=== PATIENT | female | born 1990 | race Caucasian/White ===

== ENCOUNTER 2016-11-26 15:33 | Inpatient (IN) | payer MEDICAID ==
[~2016-11-26] VITALS: Ht 162.6 cm; Wt 54.4 kg
[~2016-11-26 15:33] MED LIST: ALBU6.7H INH; PRED-503 PO; ZITH250T PO
[2016-11-28] VITALS (18 sets, daily range): BP systolic 100–115; BP diastolic 57–72; PULSE 69–94; RESP 6–18; TEMP 97.6–98.2; O2SAT 99–100
[2016-11-28] MEDS ORDERED: LACTATED RINGER'S 1000 ML IV ONE (06:15)
[2016-11-28] MEDS ORDERED: ceFAZolin 2 GM PREMIX 50 ML IV SCH (06:15)
[2016-11-28] MEDS ORDERED: CITRIC ACID-SODIUM CITRATE LIQ 30 ML UDC PO SCH (06:15)
[2016-11-28] MEDS ORDERED: SUBUTEX PO (06:17)
[2016-11-28] MEDS ORDERED: CALNTAB PO (06:18)
[2016-11-28] MEDS ORDERED: MIRA3350 PO (06:19)
[2016-11-28 06:48] LABS: AUTOMATED NEUTROPHIL # 5.8 TH/MM3 (1.8-7.7); BASOPHIL % 0.5 % (0.0-2.0); EOSINOPHIL # 0.3 TH/MM3 (0-0.4); EOSINOPHIL % 3.7 % (0.0-4.0); HEMO FLAGS DIFF FINAL; LYMPH % 22.2 % (9.0-44.0); LYMPHOCYTE # 1.9 TH/MM3 (1.0-4.8); MEAN CELL VOLUME 87.8 FL (80.0-100.0); MEAN CORPUSCULAR HGB CONC 34.1 % (32.0-36.0); MONO % 7.3 % (0.0-8.0); NEUT % 66.3 % (16.0-70.0); PLATELET COUNT 220 TH/MM3 (150-450); RED CELL DISTRIBUTION WIDTH 13.5 % (11.6-17.2); WHITE BLOOD COUNT 8.8 TH/MM3 (4.0-11.0)
[2016-11-28 06:52] LABS: BLOOD, URINE NEG (NEG); GLUCOSE,URINE NEG (NEG); KETONE, URINE 40 mg/dL (NEG); MUCUS URINE FEW /lpf (OCC); NITRITE,URINE NEG (NEG); SQUAMOUS EPITHELIAL CELL URINE 2 /hpf (0-5); TRANSITIONAL EPI CELLS, URINE <1 /hpf; URINE COLOR YELLOW (YELLW/STRAW)
[2016-11-28 06:54] LABS: COMMENT (UR) CULTURE INDICATED; CULTURE IF INDICATED CULTURE INDICATED
[2016-11-28] MEDS ORDERED: OXYTOCIN 10 UNIT/ML AMP ONE (07:05)
[2016-11-28] MEDS: LACTATED RINGER'S 1000 ML IV SCH (07:18)
[2016-11-28] MEDS ORDERED: EPIDURAL-NALOXONE HCL 0.4 MG/ML AMP IV PRN (07:25)
[2016-11-28] MEDS ORDERED: EPIDURAL-NO SYSTEMIC NARCOTICS XX PRN (07:25)
[2016-11-28] MEDS ORDERED: EPIDURAL-DO NOT ADMINISTER ANTICOAGULANTS XX PRN (07:25)
[2016-11-28] MEDS ORDERED: EPIDURAL-DIPHENHYDRAMINE HCL 50 MG/ML VIAL IV PUSH PRN (07:25)
[2016-11-28] MEDS ORDERED: EPIDURAL-DIPHENHYDRAMINE HCL 50 MG CAP PO PRN (07:25)
--- NOTE | 2016-11-28 07:43 | MH ---
cc: VERONIKA SANCHEZ DATE OF ADMISSION: 11/28/2016 SCHEDULED PROCEDURE Repeat low transverse segment section. REASON FOR ADMISSION Prior section and desire for repeat. HISTORY OF PRESENT CONDITION The patient is a 29-year-old single white female, 2, para 1-0-0-1 at 39 weeks and change, who presents this morning for repeat low transverse segment section. She is a late entry into our practice having presented to our office without an appointment in September unable to find any care in our community. 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 At that point she was 32 weeks and other than constipation and a previous sections and no other issues. She was started on Subutex 8 mg b.i.d. by me, signed contracts, and agreed to go through our program, and other than Zantac, MiraLax and some Ensure she was on no other medications and has had an unremarkable remainder of her . She is very tiny. Her weight gain has been a total of 5 pounds since October 15 and she currently weighs 120 pounds. Her baby, however, is in the 37th percentile. The AC abdominal circumference is less than 10th percentile, so there is a little bit of type 2 growth restriction. She is hepatitis C negative. She is O+. Her hemoglobin is 13.4. Her Pap smear is normal. She is immune to [place] measles and chickenpox. Her cultures were all negative. Her Glucola was 115. Her group-B strep was negative. We do have records from her previous care in [place] and everything was unremarkable there also. FAMILY HISTORY Noncontributory. SOCIAL HISTORY Currently she is not smoking, drinking or using illicit drugs. The father of the baby is somewhat estranged but is present today for her . PHYSICAL EXAMINATION GENERAL: She is a slim female in no acute distress. VITAL SIGNS: Afebrile with stable vital signs. NECK: She has no thyroid enlargement. LUNGS: Her lungs are clear. HEART: Regular. OB: Fundus measures 35. Estimated weight about 6 pounds. The is in vertex position with a posterior placenta. Cervix is 2 cm. EXTREMITIES: Extremities are healthy with no edema and no recent track trevino. She has good dentition, good skin. IMPRESSION A healthy term with a young woman mom who is on a fairly average dose of Subutex scheduled for repeat . She understands the implications of abstinence syndrome. She understands that she may have a different perception of pain postoperatively. We will try to get her a post-op TAP for post-op analgesia with Anesthesia. The risks and benefits of repeat versus trial of labor have been discussed in detail. She has signed consents and is scheduled for this morning. Veronika Sanchez MD PPC/BT /7:09 AM /7:32 AM
--- NOTE | 2016-11-28 08:21 | PD.OB.DELI ---
Procedure Note Section Procedure Pre Op Diagnosis term, desired repeat subutex maintenance Post Op Diagnosis: Post Op Diagnosis same, delivered Performed by Brenna Pichardo Procedure: Repeat Low Transverse Sec, Other (TAP) Indication for delivery: Desired elective repeat Informed consent obtained: For anesthesia, For procedure Confirmed correct: Patient, Procedure, Site, Time-out taken Anesthesia: Spinal, Other (TAP) Medication prior to procedure: As documented in eMAR Monitoring during procedure: Blood pressure monitoring Urinary catheter: Inserted using sterile technique, To dependent drainage Sterile preparation: Duraprep, In usual fashion Position: Supine with wedge to right side Operative Features Skin Incision: Pfannenstiel Uterine Incision: Low transverse w/knife / blunt ext Membranes Ruptured: Artificially Presentation: Occiput anterior Delivery of infant: Assisted Infant: Female One Minute : 8 Five Minute : 9 Weight: 6 1 Status of infant: Viable, Umbilical cord, Nursery present Placenta delivered: Intact Medications: Antibiotics, Oxytocin Estimated blood loss: 500 Procedure tolerated: Well Maternal Condition: Stable Condition: Stable Brenna Pichardo MD Nov 28, 2016 08:21
[2016-11-28] MEDS ORDERED: OXYTOCIN 30 UNITS-500ML PREMIX 500 ML IV ONE (08:30)
[2016-11-28] MEDS ORDERED: KETOROLAC TROMETHAMINE 60 MG/2 ML (IM) VIAL IM PRN (08:30)
[2016-11-28] MEDS ORDERED: SODIUM CHLORIDE 0.9% FLUSH 5 ML FLUSH IV PRN (08:30)
[2016-11-28] MEDS ORDERED: ONDANSETRON HCL 4 MG/2 ML VIAL IV PUSH PRN (08:30)
[2016-11-28] MEDS ORDERED: SIMETHICONE 80 MG CHEWABLE TAB PO PRN (08:30)
[2016-11-28] MEDS ORDERED: MORPHINE SULFATE PF 5 MG/10 ML VIAL ONE (08:33)
[2016-11-28] MEDS ORDERED: ACETAMINOPHEN 1000 MG/100 ML VIAL IV ONE (09:00)
[2016-11-28] MEDS ORDERED: SODIUM CHLORIDE 0.9% FLUSH 5 ML FLUSH IV SCH (09:00)
[2016-11-28] MEDS ORDERED: OXYTOCIN 30 UNITS-500ML PREMIX 500 ML ONE (09:01)
[2016-11-28] MEDS ORDERED: LACTATED RINGER'S 1000 ML INJ 1,000 ML IV SCH (13:21)
[2016-11-28 13:24] LABS: AMPHETAMINE, URINE NEG (NEG); BARBITURATES, URINE NEG (NEG); COCAINE, URINE NEG (NEG)
[2016-11-28] MEDS ORDERED: OXYTOCIN 30 UNITS-500ML PREMIX 500 ML IV PRN (18:30)
--- NOTE | 2016-11-28 22:11 | MP ---
cc: BRENNA SANCHEZ DATE OF SURGERY: 11/28/2016 PREOPERATIVE DIAGNOSIS: Term intrauterine , desired repeat section, Subutex maintenance. POSTOPERATIVE DIAGNOSIS: Term intrauterine , desired repeat section, Subutex maintenance. PROCEDURE: Repeat low transverse segment section. ANESTHESIA: Spinal with Duramorph and a subsequent TAP. FINDINGS: A living female was delivered from CONNIE position with clear fluid and no nuchal cord. Her Apgars were 8 at 1 and 9 at 5, weight 6 pounds 11 ounces. Placenta was posterior intact with a three-vessel cord. BLOOD LOSS: Minimal for . Uterus, tubes and ovaries were unremarkable. DETAILS OF PROCEDURE: The patient was identified as Alis Nichols. Her permit was reviewed with her at time out. She had been administered a spinal with Duramorph and was on the left side. She had sequential on, a Lin in place and had received antibiotics 1 gram IV preop. After assuring adequate analgesia and appropriate time out a Pfannenstiel incision was made through her previous one and taken through the scarred rectus fascia with the Bovie. The rectus fascia was taken off the rectus muscle. The rectus muscle was in the midline. The parietal peritoneum was entered. A bladder flap was created and a low transverse incision was made, extended vertically in a blunt fashion. The infant was delivered with the findings as noted above. The cord was clamped x2, cut, after a 45-second delay and then she was handed off to the neonatology team in attending. The placenta was delivered manually intact, the uterus was exteriorized, cleaned was lap sponge and closed with chromic in a running interlocking fashion with a second horizontal imbricating layer. Then it was replaced in the abdominal cavity and irrigation was performed. The rectus muscles approximated, the fascia was then closed with one Vicryl. The subcutaneous layer was closed with 3-0 plain and the skin was closed with 4-0 Vicryl on a Aguila needle. Estimated blood loss was average. Sponge, instrument, needle count correct. She tolerated the procedure well and she went to the recovery room in stable condition. Brenna Sanchez MD PPC/MEGHANA /8:27 AM /10:01 PM
[2016-11-28] MEDS: IBUPROFEN 600 MG TAB PO PRN (22:23)
[2016-11-28] MEDS: DOCUSATE SODIUM 50 MG/SENNA 8.6 MG TAB PO PRN (23:54)
[2016-11-29] VITALS: BP 102/59; PULSE 87; RESP 18; TEMP 98.2
[2016-11-29] MEDS: IBUPROFEN 600 MG TAB PO PRN ×2 (03:57→11:03)
[2016-11-29 04:00] VITALS: BP 101/59; PULSE 75; RESP 18; TEMP 98.7
[2016-11-29 06:04] LABS: AUTOMATED NEUTROPHIL # 6.9 TH/MM3 (1.8-7.7); BASOPHIL % 0.4 % (0.0-2.0); EOSINOPHIL # 0.1 TH/MM3 (0-0.4); EOSINOPHIL % 1.4 % (0.0-4.0); HEMATOCRIT 30.9 % (35.0-46.0); HEMO FLAGS DIFF FINAL; LYMPH % 19.5 % (9.0-44.0); LYMPHOCYTE # 1.9 TH/MM3 (1.0-4.8); MEAN CELL VOLUME 88.6 FL (80.0-100.0); MEAN CORPUSCULAR HEMOGLOBIN 30.3 PG (27.0-34.0); MEAN CORPUSCULAR HGB CONC 34.2 % (32.0-36.0); MONO % 7.3 % (0.0-8.0); NEUT % 71.4 % (16.0-70.0); PLATELET COUNT 169 TH/MM3 (150-450); RED BLOOD COUNT 3.49 MIL/MM3 (4.00-5.30); RED CELL DISTRIBUTION WIDTH 13.6 % (11.6-17.2); WHITE BLOOD COUNT 9.7 TH/MM3 (4.0-11.0)
--- NOTE | 2016-11-29 08:32 | HHI.OB ---
Subjective Post Operative Day: 1 Remarks no complaints, encouraged Objective Vitals/I&O Vital Signs Date Time Temp Pulse Resp B/P Pulse Ox O2 Delivery O2 Flow Rate FiO2 11/29/16 04:00 101/59 11/29/16 04:00 98.7 75 18 11/29/16 00:00 98.2 87 18 102/59 11/28/16 20:00 18 11/28/16 20:00 98.0 83 100/63 11/28/16 18:00 17 11/28/16 16:57 18 11/28/16 15:00 16 11/28/16 14:30 98.2 77 16 115/68 11/28/16 14:00 16 11/28/16 13:40 16 11/28/16 13:00 16 11/28/16 12:00 6 11/28/16 12:00 16 11/28/16 10:30 97.6 11/28/16 10:30 80 18 105/69 11/28/16 09:41 75 16 105/70 99 11/28/16 09:41 97.6 11/28/16 09:30 69 18 103/71 100 11/28/16 09:15 79 16 111/70 99 11/28/16 09:00 110/72 11/28/16 09:00 87 16 99 11/28/16 08:45 16 99 11/28/16 08:45 91 108/66 Result Diagram: 11/29/16 0447 Objective Remarks GENERAL: Well-nourished, well-developed patient. CARDIOVASCULAR: Regular rate and rhythm without murmurs, gallops, or rubs. RESPIRATORY: Breath sounds equal bilaterally. No accessory muscle use. ABDOMEN/GI: Abdomen soft, non-tender, bowel sounds present. Incision: dressing Clean, dry and intact. Fundus: Firm, non-tender at umbilicus. GENITOURINARY: Light to moderate bleeding. EXTREMITIES: No cyanosis or edema, non-tender, without signs of DVT. Medications and IVs Current Medications Medications (Trade) Dose Ordered Sig/Demi Route Start Time Stop Time Status Last Admin Lactated Ringer's 1,000 ml @ 150 mls/hr Q6H40M IV 11/28/16 06:15 11/28/16 07:18 (Lr 1000 ml Inj) 1,000 ml @ 100 mls/hr Q10H IV 11/28/16 13:21 11/29/16 09:20 11/28/16 15:00 (NS Flush) 2 ml BID IV 11/28/16 09:00 (NS Flush) 2 ml UNSCH PRN IV 11/28/16 08:30 (Mylicon Chew) 80 mg QID PRN PO 11/28/16 08:30 (Motrin) 600 mg Q6H PRN PO 11/28/16 08:30 11/29/16 03:57 (Viri-Colace) 2 tab Q12H PRN PO 11/28/16 08:30 11/28/16 23:54 (M-M-R Ii Inj) 0.5 ml ONCE ONCE SQ 11/29/16 16:00 11/29/16 16:01 (Boostrix Inj) 0.5 ml ONCE ONCE IM 11/29/16 16:00 11/29/16 16:01 (Zofran Inj) 4 mg Q6H PRN IV PUSH 11/28/16 08:30 Assessment/Plan Problem List: (1) S/P repeat low transverse Assessment and Plan s/p Repeat [facility], Dr Pichardo pt on Sobutex 8 mg BID, POD #1 discharge planning POD #3 Discharge Planning routine Attending Attestation pt seen by Sharon Wilson MD Nov 29, 2016 08:32
[2016-11-29 09:15] VITALS: BP 105/72; PULSE 96; RESP 16; TEMP 98.7
[2016-11-29] MEDS: DOCUSATE SODIUM 50 MG/SENNA 8.6 MG TAB PO PRN ×2 (11:03→19:21)
[2016-11-29] MEDS ORDERED: NALOXONE HCL 0.4 MG/ML AMP IV PRN (11:15)
[2016-11-29] MEDS: KETOROLAC TROMETHAMINE 30 MG/ML (IVP) VIAL IV PUSH PRN (11:18)
[2016-11-29] MEDS: MORPHINE SULFATE 30 MG/30 ML PCA IV SCH ×2 (13:52→19:06)
[2016-11-29] MEDS ORDERED: PCA - TOTAL MG MORPHINE DELIVERED PER SHIFT SCH (14:00)
[2016-11-29] MEDS ORDERED: MEASLES, MUMPS, RUBELLA VACCINE 0.5 ML VIAL SQ ONE (16:00)
[2016-11-29] MEDS ORDERED: DIPHTH/TETANUS/ACEL PERTUSSIS (BOOSTER) 0.5 ML VIAL/PFS IM ONE (16:00)
[2016-11-29 20:00] VITALS: BP 99/59; PULSE 80; RESP 18; TEMP 97.6
[2016-11-30] VITALS: BP 114/73; PULSE 89; RESP 18; TEMP 98.4
[2016-11-30] MEDS: KETOROLAC TROMETHAMINE 30 MG/ML (IVP) VIAL IV PUSH PRN ×2 (00:07→10:44)
[2016-11-30] MEDS: MORPHINE SULFATE 30 MG/30 ML PCA IV SCH (00:43)
[2016-11-30 02:00] VITALS: RESP 16
[2016-11-30 04:00] VITALS: BP 102/68; PULSE 76; RESP 18; TEMP 98.4
[2016-11-30 07:48] VITALS: BP 106/70; PULSE 87; RESP 16; TEMP 99
--- NOTE | 2016-11-30 08:13 | HHI.OB ---
Subjective Post Operative Day: 2 Remarks Doing well Pain is well controlled bleeding is good Baby is good Objective Vitals/I&O Vital Signs Date Time Temp Pulse Resp B/P Pulse Ox O2 Delivery O2 Flow Rate FiO2 11/30/16 05:57 16 11/30/16 04:00 98.4 76 18 102/68 11/30/16 02:00 16 11/30/16 00:43 18 11/30/16 00:00 98.4 89 18 114/73 11/29/16 20:00 97.6 80 18 99/59 11/29/16 19:06 18 11/29/16 14:30 16 11/29/16 13:52 16 11/29/16 09:15 98.7 11/29/16 09:15 96 16 105/72 Result Diagram: 11/29/16 0447 Objective Remarks GENERAL: Well-nourished, well-developed patient. CARDIOVASCULAR: Regular rate and rhythm without murmurs, gallops, or rubs. RESPIRATORY: Breath sounds equal bilaterally. No accessory muscle use. ABDOMEN/GI: Abdomen soft, non-tender, bowel sounds present. Incision: dressing Clean, dry and intact. Fundus: Firm, non-tender at umbilicus. GENITOURINARY: Light to moderate bleeding. EXTREMITIES: No cyanosis or edema, non-tender, without signs of DVT. Medications and IVs Current Medications Medications (Trade) Dose Ordered Sig/Demi Route Start Time Stop Time Status Last Admin (Lr 1000 ml Inj) 1,000 ml @ 150 mls/hr Q6H40M IV 11/28/16 06:15 11/28/16 07:18 (NS Flush) 2 ml BID IV 11/28/16 09:00 (NS Flush) 2 ml UNSCH PRN IV 11/28/16 08:30 (Mylicon Chew) 80 mg QID PRN PO 11/28/16 08:30 (Motrin) 600 mg Q6H PRN PO 11/28/16 08:30 11/29/16 11:03 (Viri-Colace) 2 tab Q12H PRN PO 11/28/16 08:30 11/29/16 19:21 (Zofran Inj) 4 mg Q6H PRN IV PUSH 11/28/16 08:30 (Toradol Inj) 30 mg Q6H PRN IV PUSH 11/29/16 11:15 12/01/16 11:14 11/30/16 00:07 (Narcan Inj) 0.4 mg UNSCH PRN IV 11/29/16 11:15 MULT AU MATIC OPERATOR Dosage Infused (Pha) 1 Q8HR .XX 11/29/16 14:00 11/30/16 05:57 Assessment/Plan Problem List: (1) S/P repeat low transverse Assessment and Plan POD#2 Doing well, D/C MULT AU MATIC OPERATOR today and start subutex Will add percocet now for a short while Start Fe after the percocet. Discharge Planning routine Antoine Gonzalez MD Nov 30, 2016 08:13
[2016-11-30] MEDS ORDERED: oxyCODONE/ACETAMINOPHEN 5 MG/325 MG TAB PO PRN (09:00)
[2016-11-30] MEDS: LACTATED RINGER'S 1000 ML IV SCH (11:35)
[2016-11-30] MEDS: DOCUSATE SODIUM 50 MG/SENNA 8.6 MG TAB PO PRN (13:54)
[2016-11-30] MEDS: oxyCODONE/ACETAMINOPHEN 5 MG/325 MG TAB PO PRN ×3 (13:55→23:58)
[2016-11-30] MEDS: IBUPROFEN 600 MG TAB PO PRN ×2 (18:20→23:58)
[2016-11-30] MEDS ORDERED: diphenhydrAMINE HCL 25 MG CAP PO PRN (22:45)
[2016-11-30] MEDS ORDERED: ZOLPIDEM TARTRATE 5 MG TAB PO PRN (22:45)
[2016-12-01] MEDS: IBUPROFEN 600 MG TAB PO PRN (07:23)
[2016-12-01] MEDS: oxyCODONE/ACETAMINOPHEN 5 MG/325 MG TAB PO PRN (07:23)
[2016-12-01 07:30] VITALS: BP 112/69; PULSE 83; RESP 18; TEMP 98
[2016-12-01] MEDS ORDERED: IBUP-232 PO (13:20)
[2016-12-01] MEDS ORDERED: AMBI5TAB PO (13:20)
[2016-12-01] MEDS ORDERED: OXYC1TAB63 PO (13:20)
[2016-12-03 09:41] LABS: OBMETHADONE UR NEG (NEG); PHENCYCLIDINE URINE NEG (NEG)
[2016-12-03 09:42] LABS: BATH SALTS (MDPV) UR NEG (NEG); ECSTASY (MDMA) UR NEG (NEG); HEROIN (6-ACETYLMORPHINE) UR NEG (NEG); K2 SPICE UR NEG (NEG); OXYCODONE (PERCODAN) NEG (NEG)
== END 2016-12-01 13:59 | disposition home or self-care (01) | DRG 765 ==
LOC: H2EB 11-28 05:55 → H1EA 11-28 10:30
PROVIDERS: ADMIT Obstetrics & Gynecology; ATTEND Obstetrics & Gynecology
PROC: 10D00Z1 Extraction of Products of Conception, Low, Open Approach (ICD-10-PCS; principal; 2016-11-28)
DX: O34.211 Maternal care for low transverse scar from previous cesarean delivery (principal); O99.324 Drug use complicating childbirth; F11.20 Opioid dependence, uncomplicated; Z3A.39 39 weeks gestation of pregnancy; Z37.0 Single live birth; O75.5 Delayed delivery after artificial rupture of membranes
CPT/HCPCS: 59025; 80307; 81001; 85025; 86850; 86900; 86901; 87086; 90715; G0481; J0131; J0690; J1885; J2270; J2274; J2590; J7120; Q0163

== ENCOUNTER 2017-06-07 09:17 | Emergency (ER) | payer MEDICAID ==
[~2017-06-07] VITALS: Ht 165.1 cm; Wt 49.1 kg
[~2017-06-07 09:17] MED LIST changes: -ALBU6.7H INH; +AMBI5TAB PO; +CALNTAB PO; +IBUP-232 PO; +MIRA3350 PO; +OXYC1TAB63 PO; -PRED-503 PO; +SUBUTEX PO; -ZITH250T PO
[2017-06-07 09:19] VITALS: BP 114/69; PULSE 97; RESP 17; TEMP 99; O2SAT 95
[2017-06-07] MEDS ORDERED: PRAZ2CAP PO (09:24)
[2017-06-07] MEDS ORDERED: SUBO8MIS SL (09:24)
[2017-06-07] MEDS ORDERED: CLON1 PO (09:24)
[2017-06-07] MEDS ORDERED: DEPO150I IM (09:24)
--- NOTE | 2017-06-07 09:34 | PD ---
HPI . 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 Patient says that she thought it was possibly getting better, however her symptoms continue to worsen. She now has eye pain, photophobia and redness to her left eye. She denies any foreign body sensation. She has continued to wear her contact lenses over the past few days, except for today. PFSH Past Medical History Cardiovascular Problems: Yes (TACHYCARDIA) ?: Not LMP: DECEMBER 2016 Past Surgical History Section: Yes Oral Surgery: Yes (JAW ) Social History Alcohol Use: No Tobacco Use: Yes (stop smoking cigarettes but uses E cigarette during ) Substance Use: No Allergies-Medications (Allergen,Severity, Reaction): Coded Allergies: No Known Allergies (Unverified , 06/07/17) Reported Meds & Prescriptions Reported Meds & Active Scripts Active Reported Depo-Provera Inj (Medroxyprogesterone Inj) 150 Mg/Ml Inj 150 Mg IM ONCE Klonopin (Clonazepam) 1 Mg Tab 1 Mg PO QID PRN Suboxone Sublingual Film (Buprenorphine-Naloxone Sublingual Film) 8-2 Mg Film 1 Film SL Unique ID number required: Prazosin (Prazosin HCl) 2 Mg Cap 2 Mg PO TID Review of Systems General / Constitutional: No: Fever Eyes: Positive: Photophobia, Redness, Pain, Tearing, No: Visual changes HENT: No: Headaches Cardiovascular: No: Chest Pain or Discomfort Respiratory: No: Shortness of Breath Gastrointestinal: No: Abdominal Pain Genitourinary: No: Dysuria Musculoskeletal: No: Pain Skin: No Rash Neurologic: No: Weakness Psychiatric: No: Depression Endocrine: No: Polydipsia Hematologic/Lymphatic: No: Easy Bruising Physical Exam Narrative GENERAL: AAO x 3, no acute distress, Well-nourished, well-developed patient. SKIN: Warm and dry. No visible rashes or bruising. HEAD: Normocephalic and atraumatic. EYES: No scleral icterus. No injection EOM intact, PERRLA + clear drainage from left eye, redness, photophobia, ++ tearing. ENT: No nasal drainage noted. Mucous membranes pink. Airway patent. NECK: Supple, trachea midline. No JVD. CARDIOVASCULAR: Regular rate and rhythm without murmurs, gallops, or rubs. RESPIRATORY: Breath sounds equal bilaterally. No accessory muscle use. No rhonchi or rales. GASTROINTESTINAL: visual inspection normal EXTREMITIES: No cyanosis or edema. BACK: No obvious deformity. NEURO: CN II-12 intact PSYCH: AAO x 3, normal affect. Data Data Last Documented VS Vital Signs Date Time Temp Pulse Resp B/P (MAP) Pulse Ox O2 Delivery O2 Flow Rate FiO2 06/07/17 09:51 06/07/17 09:19 99.0 97 17 95 Room Air Orders Orders Proparacaine 0.5% Opth Soln (Alcaine 0.5 (06/07/17 09:45) MDM Medical Decision Making Medical Screen Exam Complete: Yes Emergency Medical Condition: Yes Medical Record Reviewed: Yes Differential Diagnosis corneal ulcer, corneal abrasion, acute angle glaucoma Narrative Course 26 yr old female here with worsening eye pain, redness and clear drainage. I have performed bedside staining and her eye is very sensitive. I do not appreciate an abrasion, but there may be a small ulcer on the left lateral eye. I recommend ophthalmology appointment. I have contacted Dr. Keene's office and they will see her this morning at 1030. Procedures Procedure Narrative Fluorescein eye staining procedure: left eye proparacaine drops instilled into the left eye Local anesthesia was accomplished. the eye was inspected for any type of obvious foreign body fluorescein stain was applied to look for corneal abrasion Diagnosis Primary Impression: Eye pain Qualified Codes: H57.12 - Ocular pain, left eye Referrals: Elena Keene MD Additional Instructions: Dr. Keene will see you this morning at 1030; please go directly to her office. Disposition: 01 DISCHARGE HOME Condition: Stable Sandy Medina Jun 07, 2017 09:33
[2017-06-07] MEDS ORDERED: PROPARACAINE HCL 0.5% OPHT SOLN 15 ML BTL EACH EYE ONE (09:45)
== END 2017-06-07 09:52 | disposition home or self-care (01) ==
LOC: NEPK 09:17
DX: H57.12 Ocular pain, left eye (principal)
CPT/HCPCS: 99283

== ENCOUNTER 2017-07-15 14:12 | Emergency (ER) | payer MEDICAID ==
[~2017-07-15] VITALS: Ht 167.6 cm; Wt 48.0 kg
[~2017-07-15 14:12] MED LIST changes: -AMBI5TAB PO; -CALNTAB PO; +CLON1 PO; +DEPO150I IM; -IBUP-232 PO; -MIRA3350 PO; -OXYC1TAB63 PO; +PRAZ2CAP PO; +SUBO8MIS SL; -SUBUTEX PO
[2017-07-15 14:13] VITALS: BP 128/84; PULSE 133; RESP 20; TEMP 100.6; O2SAT 95
[2017-07-15 15:10] VITALS: BP 115/73; PULSE 110; RESP 18; TEMP 99.9; O2SAT 96
[2017-07-15] MEDS ORDERED: DEXAMETHASONE SOD PHOS 4 MG/ML VIAL IM ONE (15:15)
[2017-07-15] MEDS ORDERED: PENICILLIN G BENZATHINE 1,200,000 UNITS/2 ML SYRINGE IM ONE (15:15)
--- NOTE | 2017-07-15 15:19 | PD ---
HPI Chief Complaint: Cold / Flu Symptoms Time Seen by Provider: 15:12 Travel History International Travel<30 days: No Contact w/Intl Traveler<30days: No Traveled to known affect area: No History of Present Illness HPI The patient is 26 years old. She arrives due to sharp chest pain which started a few days ago however has since resolved. She was noted to having diagnosis acute bronchitis. She received azithromycin. Today she describes sore throat. The fever and headache reported. Her son has a history of strep pharyngitis from a few weeks ago. Associated symptoms include fatigue. PFSH Past Medical History Anxiety: Yes Cardiovascular Problems: Yes (TACHYCARDIA) Influenza Vaccination: Yes ?: Unknown LMP: 07/15/2017 : 2 Para: 2 Past Surgical History Section: Yes (x2) Oral Surgery: Yes (JAW ) Social History Alcohol Use: No Tobacco Use: Yes (0.5 ppd) Substance Use: Yes (suboxan for opiate withdrawl) Allergies-Medications (Allergen,Severity, Reaction): Coded Allergies: No Known Allergies (Unverified , 07/15/17) Reported Meds & Prescriptions Reported Meds & Active Scripts Active Reported Depo-Provera Inj (Medroxyprogesterone Inj) 150 Mg/Ml Inj 150 Mg IM ONCE Klonopin (Clonazepam) 1 Mg Tab 1 Mg PO QID PRN Suboxone Sublingual Film (Buprenorphine-Naloxone Sublingual Film) 8-2 Mg Film 1 Film SL Unique ID number required: Prazosin (Prazosin HCl) 2 Mg Cap 2 Mg PO TID Review of Systems Except as stated in HPI: all other systems reviewed are Neg Physical Exam Narrative GENERAL: 26-year-old female well-nourished well-developed acute distress SKIN: Focused skin assessment warm/dry. HEAD: Atraumatic. Normocephalic. EYES: Pupils equal and round. No scleral icterus. No injection or drainage. ENT: No nasal bleeding or discharge. Mucous membranes pink and moist. Bilateral tonsillar exudate. Tender anterior neck lymph nodes. NECK: Trachea midline. No JVD. CARDIOVASCULAR: Tachycardia. Regular. RESPIRATORY: No accessory muscle use. Clear to auscultation. Breath sounds equal bilaterally. GASTROINTESTINAL: Abdomen soft, non-tender, nondistended. Hepatic and splenic margins not palpable. MUSCULOSKELETAL: No obvious deformities. No clubbing. No cyanosis. No edema. NEUROLOGICAL: Awake and alert. No obvious cranial nerve deficits. Motor grossly within normal limits. Normal speech. PSYCHIATRIC: Appropriate mood and affect; insight and judgment normal. Data Data Last Documented VS Vital Signs Date Time Temp Pulse Resp B/P (MAP) Pulse Ox O2 Delivery O2 Flow Rate FiO2 07/15/17 15:11 110 18 95 Room Air 07/15/17 15:10 99.9 115/73 (87) Orders Orders Penicillin G Benzathine Inj (Bicillin L- (07/15/17 15:15) Dexamethasone Inj (Decadron Inj) (07/15/17 15:15) MDM Medical Decision Making Medical Screen Exam Complete: Yes Emergency Medical Condition: Yes Medical Record Reviewed: Yes Differential Diagnosis streptococcal pharyngitis, peritonsillar abscess, pharyngeal abscess, meningitis , pneumonia, mononucleosis Narrative Course Patient has received Decadron and Bicillin. Return precautions discussed. Diagnosis Primary Impression: Pharyngitis Qualified Codes: J02.0 - Streptococcal pharyngitis Referrals: Primary Care Physician Additional Instructions: You have a choice when it comes to health care, and we are glad that you chose [facility] Hopefully, we have met your expectations on today's visit. You are welcome to return to [facility] at any time, as we are committed to meeting the health care needs of our community. Med/Other Pt SpecificInfo: No Change to Meds Disposition: 01 DISCHARGE HOME Alexys Santiago MD Jul 15, 2017 15:19
== END 2017-07-15 17:44 | disposition home or self-care (01) ==
LOC: NEPC 14:12
DX: J02.0 Streptococcal pharyngitis (principal); F17.200 Nicotine dependence, unspecified, uncomplicated
CPT/HCPCS: 96372; 99284; J0561; J1100

== ENCOUNTER 2017-07-18 10:16 | Emergency (ER) | payer MEDICAID ==
[~2017-07-18] VITALS: Ht 162.6 cm; Wt 50.0 kg
[2017-07-18 10:18] VITALS: BP 123/77; PULSE 94; RESP 16; TEMP 98.9; O2SAT 99
[2017-07-18] MEDS ORDERED: SODIUM CHLOR 0.9% 1000 ML INJ 1,000 ML IV ONE ×2 (11:00)
[2017-07-18] MEDS ORDERED: ONDANSETRON HCL 4 MG/2 ML VIAL IV PUSH ONE ×2 (11:00)
[2017-07-18] MEDS ORDERED: KETOROLAC TROMETHAMINE 30 MG/ML (IVP) VIAL IV PUSH ONE ×2 (11:00)
--- NOTE | 2017-07-18 11:04 | PD ---
HPI Chief Complaint: Fever Time Seen by Provider: 10:44 Travel History International Travel<30 days: No Contact w/Intl Traveler<30days: No Traveled to known affect area: No History of Present Illness HPI 26-year-old female complains of sore throat, generalized malaise, disorientation , fever, poor appetite. Patient states that the symptoms started about 2 weeks ago. Patient was seen at local walk-in clinic and given Z-Winston. Patient states that the symptoms persist despite taking Z-Winston. Patient was seen in emergency room 3 days ago and was diagnosed with pharyngitis. Patient was given penicillin G benzathine IM injection and dexamethasone injection. Patient states that the sore throat got better however patient still had persistent generalized malaise, intermittent disorientation, neck discomfort, poor appetite. Patient denies any headache. Patient denies any visual change. Patient denies any chest pain or shortness of breath. Patient denies abdominal pain. Patient denies any nausea vomiting diarrhea. Patient denies any focal weakness or numbness of extremity. 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) Allergies-Medications (Allergen,Severity, Reaction): Coded Allergies: No Known Allergies (Unverified , 07/18/17) Reported Meds & Prescriptions Reported Meds & Active Scripts Active Reported Depo-Provera Inj (Medroxyprogesterone Inj) 150 Mg/Ml Inj 150 Mg IM ONCE Klonopin (Clonazepam) 1 Mg Tab 1 Mg PO QID PRN Suboxone Sublingual Film (Buprenorphine-Naloxone Sublingual Film) 8-2 Mg Film 1 Film SL Unique ID number required: Prazosin (Prazosin HCl) 2 Mg Cap 2 Mg PO TID Review of Systems General / Constitutional: No: Fever Eyes: No: Visual changes HENT: Positive: Sore Throat, Neck Pain, No: Headaches Cardiovascular: No: Chest Pain or Discomfort Respiratory: No: Shortness of Breath Gastrointestinal: No: Abdominal Pain Genitourinary: No: Dysuria Musculoskeletal: No: Pain Skin: No Rash Neurologic: No: Weakness Psychiatric: No: Depression Endocrine: No: Polydipsia Hematologic/Lymphatic: No: Easy Bruising Physical Exam Narrative GENERAL: Well-nourished, well-developed patient. SKIN: Focused skin assessment warm/dry. HEAD: Normocephalic. EYES: No scleral icterus. No injection or drainage. TM: Clear Throat: Mild erythematous. NECK: Supple, trachea midline. No JVD. Patient has mild anterior cervical lymphadenopathy. No meningismus CARDIOVASCULAR: Regular rate and rhythm without murmurs, gallops, or rubs. RESPIRATORY: Breath sounds equal bilaterally. No accessory muscle use. GASTROINTESTINAL: Abdomen soft, non-tender, nondistended. MUSCULOSKELETAL: No cyanosis, or edema. BACK: Nontender without obvious deformity. No CVA tenderness. Neurologic exam normal. Data Data Last Documented VS Vital Signs Date Time Temp Pulse Resp B/P (MAP) Pulse Ox O2 Delivery O2 Flow Rate FiO2 07/18/17 10:41 Room Air 07/18/17 10:18 98.9 94 16 123/77 (92) 99 Orders Orders Complete Blood Count With Diff (07/18/17 10:55) Comprehensive Metabolic Panel (07/18/17 10:55) Urinalysis - C+S If Indicated (07/18/17 10:55) Group A Rapid Strep Screen (07/18/17 10:55) Influenzae A/B Antigen (07/18/17 10:55) Chest, Single Ap (07/18/17 10:55) Iv Access Insert/Monitor (07/18/17 10:55) Ecg Monitoring (07/18/17 10:55) Oximetry (07/18/17 10:55) Blood Culture (07/18/17 10:55) Lactic Acid (07/18/17 10:55) Ketorolac Inj (Toradol Inj) (07/18/17 11:00) Ondansetron Inj (Zofran Inj) (07/18/17 11:00) Sodium Chlor 0.9% 1000 Ml Inj (Ns 1000 M (07/18/17 11:00) Strep Culture (Group A) (07/18/17 11:00) Ed Discharge Order (07/18/17 12:09) Labs Laboratory Tests Test 07/18/17 11:00 White Blood Count 4.4 TH/MM3 Red Blood Count 4.99 MIL/MM3 Hemoglobin 14.1 GM/DL Hematocrit 42.1 % Mean Corpuscular Volume 84.5 FL Mean Corpuscular Hemoglobin 28.3 PG Mean Corpuscular Hemoglobin Concent 33.5 % Red Cell Distribution Width 13.6 % Platelet Count 264 TH/MM3 Mean Platelet Volume 7.5 FL Neutrophils (%) (Auto) 52.3 % Lymphocytes (%) (Auto) 37.4 % Monocytes (%) (Auto) 8.4 % Eosinophils (%) (Auto) 1.4 % Basophils (%) (Auto) 0.5 % Neutrophils # (Auto) 2.3 TH/MM3 Lymphocytes # (Auto) 1.7 TH/MM3 Monocytes # (Auto) 0.4 TH/MM3 Eosinophils # (Auto) 0.1 TH/MM3 Basophils # (Auto) 0.0 TH/MM3 CBC Comment DIFF FINAL Differential Comment Urine Color YELLOW Urine Turbidity CLEAR Urine pH 7.5 Urine Specific [place] 1.008 Urine Protein NEG mg/dL Urine Glucose (UA) NEG mg/dL Urine Ketones NEG mg/dL Urine Occult Blood MOD Urine Nitrite NEG Urine Bilirubin NEG Urine Urobilinogen LESS THAN 2.0 MG/DL Urine Leukocyte Esterase NEG Urine RBC LESS THAN 1 /hpf Urine WBC LESS THAN 1 /hpf Urine Squamous Epithelial Cells 1 /hpf Urine Amorphous Sediment OCC Urine Hyaline Casts 1 /lpf Urine Mucus FEW /lpf Microscopic Urinalysis Comment CULT NOT INDICATED Blood Urea Nitrogen 4 MG/DL Creatinine 0.47 MG/DL Random Glucose 83 MG/DL Total Protein 8.0 GM/DL Albumin 3.8 GM/DL Calcium Level 9.4 MG/DL Alkaline Phosphatase 97 U/L Aspartate Amino Transf (AST/SGOT) 23 U/L Alanine Aminotransferase (ALT/SGPT) 20 U/L Total Bilirubin 0.3 MG/DL Sodium Level 137 MEQ/L Potassium Level 3.8 MEQ/L Chloride Level 103 MEQ/L Carbon Dioxide Level 26.5 MEQ/L Anion Gap 8 MEQ/L Estimat Glomerular Filtration Rate 161 ML/MIN Lactic Acid Level 1.0 mmol/L MDM Medical Decision Making Medical Screen Exam Complete: Yes Emergency Medical Condition: Yes Interpretation(s) Last Impressions Chest X-Ray 07/18/17 1055 Signed Impressions: Service Date/Time: June 11:14 - CONCLUSION: No evidence of acute cardiopulmonary disease. Zhou Brown MD 12:04 PM. CBC within normal limit. CMP within normal limit. Lactic acid 1.0. UA negative. Influenza AB antigen negative. Group A strep screen negative. Differential Diagnosis Differential diagnosis including viral syndrome, pharyngitis, bronchitis, pneumonia, UTI, electrolyte imbalance, dehydration, sepsis. Narrative Course 26-year-old female with sore throat, fever, occasional disorientation, poor appetite. Patient was treated with Z-Winston and penicillin recently. Normal saline solution 1 L IV bolus. Toradol 30 mg IV. Zofran 4 mg IV. Diagnosis Primary Impression: Viral syndrome Patient Instructions: General Instructions Additional Instructions: Tylenol ibuprofen for aching pain. Encouraged by mouth fluid. Follow-up with personal physician. Return if worse. Med/Other Pt SpecificInfo: No Change to Meds Disposition: 01 DISCHARGE HOME Condition: Stable Brenden Jesus MD Jul 18, 2017 11:04
--- NOTE | 2017-07-18 11:33 | RADRPT ---
EXAM DATE/TIME: 07/18/2017 11:14 [facility] COMPARISON: No previous studies available for comparison. INDICATIONS : Shortness of breath. MEDICAL HISTORY : None. SURGICAL HISTORY : None. ENCOUNTER: Initial ACUITY: 4 - 6 days PAIN SCORE: 0/10 LOCATION: Bilateral chest FINDINGS: A single view of the chest demonstrates the lungs to be symmetrically aerated without evidence of mas s, infiltrate or effusion. The cardiomediastinal contours are unremarkable. Osseous structures are intact. CONCLUSION: No evidence of acute cardiopulmonary disease. Zhou Brown MD on July 18, 2017 at 11:31 Board Certified Radiologist. This report was verified electronically.
[2017-07-18 11:43] LABS: AUTOMATED NEUTROPHIL # 2.3 TH/MM3 (1.8-7.7); BASOPHIL % 0.5 % (0.0-2.0); EOSINOPHIL # 0.1 TH/MM3 (0-0.4); EOSINOPHIL % 1.4 % (0.0-4.0); HEMATOCRIT 42.1 % (35.0-46.0); HEMOGLOBIN 14.1 GM/DL (11.6-15.3); LYMPH % 37.4 % (9.0-44.0); LYMPHOCYTE # 1.7 TH/MM3 (1.0-4.8); MEAN CELL VOLUME 84.5 FL (80.0-100.0); MEAN CORPUSCULAR HEMOGLOBIN 28.3 PG (27.0-34.0); MEAN CORPUSCULAR HGB CONC 33.5 % (32.0-36.0); MEAN PLATELET VOLUME 7.5 FL (7.0-11.0); MONO % 8.4 % (0.0-8.0); MONOCYTE # 0.4 TH/MM3 (0-0.9); NEUT % 52.3 % (16.0-70.0); PLATELET COUNT 264 TH/MM3 (150-450); RED BLOOD COUNT 4.99 MIL/MM3 (4.00-5.30); RED CELL DISTRIBUTION WIDTH 13.6 % (11.6-17.2); WHITE BLOOD COUNT 4.4 TH/MM3 (4.0-11.0)
[2017-07-18 11:49] LABS: AMORPHOUS SEDIMENT, URINE OCC; BILIRUBIN, URINE NEG (NEG); BLOOD, URINE MOD (NEG); GLUCOSE,URINE NEG (NEG); HYALINE CAST, URINE 1 /lpf (RARE); KETONE, URINE NEG (NEG); MUCUS URINE FEW /lpf (OCC); NITRITE,URINE NEG (NEG); PH, URINE 7.5 (5.0-8.5); SQUAMOUS EPITHELIAL CELL URINE 1 /hpf (0-5); URINE COLOR YELLOW (YELLW/STRAW); URINE LEUKOCYTE ESTERASE NEG (NEG)
[2017-07-18 11:54] LABS: ALBUMIN 3.8 GM/DL (3.4-5.0); AST (GOT) 23 U/L (15-37); BICARBONATE 26.5 MEQ/L (21.0-32.0); BLOOD UREA NITROGEN 4 MG/DL (7-18); CALCIUM 9.4 MG/DL (8.5-10.1); CHLORIDE 103 MEQ/L (98-107); CREATININE 0.47 MG/DL (0.50-1.00); GLOMERULAR FILTRATION RATE 161 ML/MIN (>89); GLUCOSE,RANDOM 83 MG/DL (74-106); SODIUM (NA) 137 MEQ/L (136-145)
[2017-07-18 11:55] LABS: ALT (GPT) 20 U/L (10-53)
[2017-07-18 11:57] LABS: ALKALINE PHOSPHATASE 97 U/L (45-117); TOTAL BILIRUBIN ADULT 0.3 MG/DL (0.2-1.0)
[2017-07-18 12:35] VITALS: BP 118/71
== END 2017-07-18 12:35 | disposition home or self-care (01) ==
LOC: NEPC 10:16
DX: B34.9 Viral infection, unspecified (principal); F17.200 Nicotine dependence, unspecified, uncomplicated
CPT/HCPCS: 71010; 80053; 81001; 83605; 85025; 87040; 87081; 87804; 87880; 96361; 96374; 96375; 99284; J1885; J2405; J7030